=== PATIENT | female | born 1985 | race Caucasian/White ===

== ENCOUNTER 2020-11-19 13:26 | Outpatient (CLI) | payer OTHER, SELFPAY ==
[2020-11-19 14:17] LABS: Hematocrit 31.5 % (37.0-47.0); Hemoglobin 10.5 g/dL (12.0-15.0); Mean Corpuscular HGB Conc 33.3 g/dl (32-36); Mean Corpuscular Hemoglobin 31.5 pg (26-34); Mean Corpuscular Volume 94.6 fl (80-100); Mean Platelet Volume 9.5 fl (7.4-10.4); Platelet Count Result 247 k/mm3 (150-375); Red Blood Count 3.33 M/mm3 (4.2-5.4); Red Cell Distribution Width 13.2 % (11.5-14.5); White Blood Count 7.4 K/mm3 (4.5-10.0)
[2020-11-19 15:12] LABS: HIV 1/2 Ab P24 Ag Result Negative (Negative)
[2020-11-19 15:51] LABS: Hepatitis B Surface Antigen Negative (Negative); Rubella IgG Antibody 46.8 IU/ML
[2020-11-20 08:26] LABS: Rapid Plasma Reagin Non-Reactive (NonReactive)
[2020-11-21 16:23] LABS: CMV IgG Antibody <0.60 U/mL (<0.60)
== END 2020-11-19 13:27 | disposition home or self-care (01) ==
LOC: ANHLAB 13:29
PROVIDERS: Visit Provider Obstetrics & Gynecology
DX: N92.5 Other specified irregular menstruation (principal)
CPT/HCPCS: 36415; 84702; 85027; 86592; 86644; 86703; 86747; 86762; 86787; 86850; 86900; 86901; 87340; G0432

== ENCOUNTER 2021-02-26 14:28 | Outpatient (CLI) | payer OTHER, SELFPAY ==
[2021-02-26 14:52] LABS: Hematocrit 30.6 % (37.0-47.0); Hemoglobin 10.2 g/dL (12.0-15.0); Mean Corpuscular HGB Conc 33.3 g/dl (32-36); Mean Corpuscular Hemoglobin 32.3 pg (26-34); Mean Corpuscular Volume 96.8 fl (80-100); Mean Platelet Volume 9.9 fl (7.4-10.4); Platelet Count Result 209 k/mm3 (150-375); Red Blood Count 3.16 M/mm3 (4.2-5.4); Red Cell Distribution Width 12.7 % (11.5-14.5); White Blood Count 7.7 K/mm3 (4.5-10.0)
[2021-02-26 15:47] LABS: HIV 1/2 Ab P24 Ag Result Negative (Negative)
== END 2021-02-26 14:29 | disposition home or self-care (01) ==
LOC: ANHLAB 14:31
PROVIDERS: PCP Obstetrics & Gynecology; Visit Provider Obstetrics & Gynecology
DX: Z34.92 Encounter for supervision of normal pregnancy, unspecified, second trimester (principal); Z3A.00 Weeks of gestation of pregnancy not specified
CPT/HCPCS: 36415; 85027; 86703; G0432

== ENCOUNTER 2021-04-19 16:06 | Outpatient (RCR) | payer OTHER, SELFPAY ==
[2021-03-25 13:42] VITALS: BP 91/57; PULSE 81
--- NOTE | 2021-04-08 15:14 | PC.NURSE ---
Dr Alfonso notified of non reactive NST before US. US of 12/30 and now a reactive tracing. OK to dc and repeat NST on or Thursday.
[2021-04-08 15:15] VITALS: BP 109/61; PULSE 93
[2021-04-15 13:18] VITALS: BP 115/74; PULSE 93
--- NOTE | ~2021-04-19 | US_ITS ---
EXAMINATION: US OB follow up w BPP DATE: 03/25/2021 13:54 INDICATION: Advanced maternal age, biophysical profile and growth assessment during third trime ster TECHNIQUE: Real-time pelvic ultrasound was performed. The interpreting radiologist was not present fo r the study. COMPARISON: None. FINDINGS: There is a single living fetus in vertex presentation. The placenta is anterior. heart rate is 137 beats per minute (bpm). Biophysical profile performed by the technologist: breathing (30 sec sustained breathing in 30 minutes): 2 out of 2 movement (3 gross body movements in 30 minutes): 2 out of 2 tone (one episode of bxirnbc-tpdonzkpk-lmcczzs limb movement): 2 out of 2 Amniotic fluid pocket (2 cm): 2 out of 2 Total score: 8 out of 8 The following biometric data were obtained: Biparietal diameter (BPD): 8.5 cm; head circumference (HC): 20.1 cm; abdominal circumference (AC): 28 .2 cm; femur length (FL): 5.9 cm. The femoral length to biparietal diameter ratio and head circumference to abdominal circumference rat io greater than two standard deviations below the mean. The femoral length to head circumference rati o is greater than two standard deviations above the mean Estimated weight is 1663 g +/- 246 g, which correlates with the <3rd percentile when 05/11/2021 is used as estimated date of delivery. As single measurements, these parameters are each equal to the following estimated gestational ages w ith ranges of +/- 2 standard deviations: BPD: 34 weeks 3 days ( 31 weeks 2 days - 37 weeks 3 days). HC: 22 weeks 2 days ( 20 weeks 6 days - 23 weeks 6 days). AC: 32 weeks 2 days ( 29 weeks 2 days - 35 weeks 2 days). FL: 31 weeks 0 days ( 28 weeks 1 days - 34 weeks 0 days). estimated gestational age based solely on measurements from this exam is 30 weeks 0 days +/- 2 weeks 1 days. IMPRESSION: 1. Single living fetus in vertex presentation. 2. Biophysical profile 8 out of 8. 3. Estimated weight is 1663 g +/- 246 g, which correlates with the <3rd percentile when 021 is used as estimated date of delivery. 4. Discordant femoral length to biparietal diameter, head circumference to abdominal circumference, a nd femoral length to head circumference ratios. Reviewed, dictated and finalized at location B. IMPRESSION: 1. Single living fetus in vertex presentation. 2. Biophysical profile 8 out of 8. 3. Estimated weight is 1663 g +/- 246 g, which correlates with the <3rd p ercentile when 05/11/2021 is used as estimated date of delivery. 4. Discordant femoral length to biparietal diameter, head circumference to abdo anaid circumference, and femoral length to head circumference ratios.
--- NOTE | ~2021-04-19 | US_ITS ---
EXAMINATION: US OB follow up w BPP DATE: 04/19/2021 17:03 INDICATION: Evaluate growth percentile. IUGR. TECHNIQUE: Real-time ultrasound of the pelvis was performed. The interpreting radiologist was not pre sent for the study. COMPARISON: Comparison to multiple prior studies sequentially, with oldest reviewed study dated 05/2020. . FINDINGS: There is a single living fetus in vertex presentation. The placenta is anterior/fundal. cardia c activity and movement are noted. heart rate is 130 beats per minute (bpm). The amniotic fluid index is 11.9 cm cm, which is normal. The following biometric data were obtained: BPD: 89 cm corresponds to gestational age 36 weeks 0 day(s). Head circumference: 340 cm corresponds to gestational age 39 weeks 1 day(s). Abdominal circumference: 323 cm corresponds to gestational age 36 weeks 2 day(s). Femur length: 68 cm corresponds to gestational age 35 weeks 0 day(s). Head circumference to abdominal circumference ratio: 1.05 Estimated weight: 2869 g plus or minus 430 g. This corresponds to 36.7 percentile 1 05/11/2021 is used as the estimated date of delivery. Biophysical profile performed by the technologist: breathing (30 sec sustained breathing in 30 minutes): 2 out of 2 movement (3 gross body movements in 30 minutes: 0 out of 2 tone (one episode of akixvgo-ynnfbpffb-rujljlk limb movement): 2 out of 2 Amniotic fluid pocket (2 cm): 2 out of 2 Total score: 6/8 out of 8 IMPRESSION: 1. Single living fetus in vertex presentation with heart rate of 130 bpm. 2. Normal placenta. 3. Biophysical profile 6 out of 8. 4. Estimated weight is 36.7th percentile by Hadlock criteria when 05/11/2021 is used as the es timated date of delivery (ANAMIKA). Reviewed, dictated and finalized at location A. AL SITTER IMPRESSION: 1. Single living fetus in vertex presentation with heart rate of 130 bpm. 2. Normal placenta. 3. Biophysical profile 6 out of 8. 4. Estimated weight is 36.7th percentile by Hadlock criteria when 2020 is used as the estimated date of delivery (ANAMIKA).
--- NOTE | ~2021-04-19 | US_ITS ---
EXAMINATION: US OB BPP wo non-stress EXAM DATE: 04/15/2021 13:18 INDICATION: Nonreactive stress test. 3rd trimester. TECHNIQUE: Pelvic obstetrical transabdominal sonogram was performed by a technologist. There are mu ltiple grayscale and Doppler images available for interpretation. Comparison is made to prior examina tion from 04/08/2021. FINDINGS: There is a single fetus identified in vertex presentation with a heart rate of 129 beats pe r minute. The placenta is located in the anterior fundal position. There is no sonographic evidence of retroplacental hemorrhage identified. BIOPHYSICAL PROFILE (performed by the technologist) breathing (30 sec sustained breathing in 30 minutes): 2 out of 2 movement (3 gross body movements in 30 minutes): 2 out of 2 tone (one episode of jlesuly-fhabtzolt-vxjjdcd limb movement): 2 out of 2 Amniotic fluid pocket (2 cm): 2 out of 2 Total score: 8 out of 8 IMPRESSION: 1. Single fetus with heart rate of 129 bpm. 2. Normal biophysical profile score of 8 out of 8. Reviewed, dictated and finalized at location A. ENT SCHEDULING COORDINATOR
--- NOTE | ~2021-04-19 | US_ITS ---
EXAMINATION: US OB BPP wo non-stress, US umbilical doppler EXAM DATE: 04/08/2021 14:51 INDICATION: IUGR . 3rd trimester. TECHNIQUE: Pelvic obstetrical transabdominal sonogram was performed by a technologist. There are mu ltiple grayscale and Doppler images available for interpretation. Umbilical artery Dopplers obtained. Comparison is made to prior examination from 03/25/2021. FINDINGS: There is a single fetus identified in vertex presentation with a heart rate of 121 beats pe r minute. The placenta is located in the anterior position. There is no sonographic evidence of retr oplacental hemorrhage identified. The amniotic fluid index is 10.5 centimeters, which is normal. BIOPHYSICAL PROFILE (performed by the technologist) breathing (30 sec sustained breathing in 30 minutes): 2 out of 2 movement (3 gross body movements in 30 minutes): 2 out of 2 tone (one episode of fydaidf-ewdfvfvuf-bpvlcmf limb movement): 2 out of 2 Amniotic fluid pocket (2 cm): 2 out of 2 Total score: 8 out of 8. UMBILICAL ARTERY DOPPLER Multiple Systolic/diastolic ratios obtained ranging from 1.9-3.4, averaging 2.2 (The 5th -- 95th perc entile range is 2.0 -- 3.4). IMPRESSION: 1. Single fetus with heart rate of 121 bpm. 2. Normal biophysical profile score of 8 out of 8. 3. Normal TETE 10.5 cm. 4. Normal umbilical artery Doppler ratios. Reviewed, dictated and finalized at location B. N MARKETING SPECIALIST IMPRESSION: 1. Single fetus with heart rate of 121 bpm. 2. Normal biophysical profile score of 8 out of 8. 3. Normal TETE 10.5 cm. 4. Normal umbilical artery Doppler ratios.
[2021-04-19 17:56] VITALS: BP 120/74; PULSE 102
== END 2021-06-06 09:42 | disposition home or self-care (01) ==
LOC: ANHOBOP 16:06
PROVIDERS: Visit Provider Obstetrics & Gynecology
DX: O09.513 Supervision of elderly primigravida, third trimester (principal); Z3A.33 33 weeks gestation of pregnancy; O36.5930 Maternal care for other known or suspected poor fetal growth, third trimester, not applicable or unspecified; Z3A.35 35 weeks gestation of pregnancy; Z3A.36 36 weeks gestation of pregnancy
CPT/HCPCS: 59025; 76816; 76819; 76820

== ENCOUNTER 2021-05-03 07:22 | Inpatient (IN) | payer OTHER, SELFPAY ==
[2021-05-03] VITALS (84 sets, daily range): BP systolic 93–146; BP diastolic 58–86; PULSE 66–127; RESP 16; TEMP 36.4–37.6; O2SAT 92–100; BMI 20.6
--- NOTE | 2021-05-03 07:43 | PM.IMHP ---
H&P: HPI History of Present Illness Date/Time: 05/03/21 07:43 Ammy is a 36yo @ 38.6wks (ANAMIKA 05/11/21) who presents for IOL due to IUGR. She reports good movements and irregular contractions. No VB or LOF. She has undergone ANT intermittently; previously had a 11/01 but declined IOL at that time and did not follow up for repeat testing as she endorsed he has been active since then. She has had regular care. Her is complicated by: - IUGR - AMA; genetic testing declined - Anemia on iron - CMV non-immune - Inadequate weight gain this Chief Complaint: induction of labor Review of Systems Review of Systems: All systems reviewed & are unremarkable except as noted in HPI and below (HPI) [facility] Family History Family History (Updated 04/15/21 @ 12:15 by Celina Bryant RN) Father Diabetes mellitus Stented coronary artery Heart disease Social History Social History Substance use: never Spiritual care concerns: No Meds Home Medications and Allergies Home Medications Medication Instructions Recorded Confirmed Type ferrous sulfate 325 mg PO DAILY 04/15/21 04/19/21 History prenat.vits,katie,ved-hdmb-xwcuo 1 tablet PO DAILY 04/15/21 04/19/21 History [ #2] cholecalciferol (vitamin D3) 25 mcg PO DAILY 04/19/21 04/19/21 History [Vitamin D3] Allergies Allergy/AdvReac Type Severity Reaction Status Date / Time No Known Allergies Allergy Verified 04/15/21 12:12 Exam Const: General: cooperative, healthy appearing, comfortable and no acute distress Resp: Effort & Inspection: normal respiratory effort Cardio: Rate: regular rate GI: Inspection: normal to inspection and non-distended GI Palp: No abdominal tenderness and Yes Soft to palpation : Other: FHT's: 120's/mod rachele/ no accel/no decels - cat 1 TOCO: irregular ctxs Cervix: 2/50/-3 Membranes: intact Presentation: cephalic Skin: General skin exam: normal color Neuro: General: patient oriented x3 Extrem: General: normal to inspection Psych: Appearance: grossly normal Affect: normal affect Attitude: cooperative Assessment and Plan Assessment and plan (1) IUGR (intrauterine growth restriction) affecting care of mother: Qualifiers: Fetus number: single or unspecified fetus Trimester: third trimester Qualified Code(s): O36.5930 - Maternal care for other known or suspected poor growth, third trimester, not applicable or unspecified Code(s): O36.5990 - Maternal care for other known or suspected poor growth, unspecified trimester, not applicable or unspecified Status: Acute (2) Advanced maternal age (AMA) in : Status: Acute Additional Plan - Admit for IOL - Pitocin per protocol - Continuous monitoring; currently reassuring - Anesthesia consult PRN pain - GBS negative
[2021-05-03 08:05] LABS: Basophils Percent Auto 0.2 % (0.2-1.2); Eosinophils Absolute Auto 0.1 K/mm3 (0-0.3); Eosinophils Percent Auto 0.5 % (0-4.4); Hematocrit 33.9 % (37.0-47.0); Hemoglobin 11.5 g/dL (12.0-15.0); Immature Granulocyte Absolute 0.05 K/mm3 (0.00-0.031); Immature Granulocyte Percent A 0.5 % (0-0.5); Lymphocytes Absolute Auto 1.59 K/mm3 (0.9-3.2); Lymphocytes Percent Auto 17.2 % (18.3-44.2); Mean Corpuscular HGB Conc 33.9 g/dl (32-36); Mean Corpuscular Volume 94.4 fl (80-100); Mean Platelet Volume 10.7 fl (7.4-10.4); Monocytes Absolute Auto 0.6 K/mm3 (0.1-0.6); Monocytes Percent Auto 6.6 % (2.6-8.5); Neutrophils Absolute Auto 6.9 K/mm3 (1.3-6.7); Platelet Count Result 183 k/mm3 (150-375); Red Blood Count 3.59 M/mm3 (4.2-5.4); Red Cell Distribution Width 12.9 % (11.5-14.5); White Blood Count 9.2 K/mm3 (4.5-10.0)
[2021-05-03] MEDS: LACTATED RINGERS 1,000 ML 125 ML IV CONT (08:06)
[2021-05-03] MEDS: OXYTOCIN 30 UNITS/NS 500 ML 30 UNITS/500 ML BAG IV CONT (08:37)
--- NOTE | 2021-05-03 08:48 | LDADM ---
This patient, Ammy E Day, was admitted to Labor/Delivery/Recovery 104 on 05/03/21 at 07:22. Plans for labor, pain management and were discussed with patient. Patient/family oriented to hospital policies and general routines including ID bracelet, bed and alarms, visiting hours, pain management, procedures, bathroom and other care routines, personal items, smoking policy, room service/diet and guest tray routines, infant security routines, and visiting hours. Patient/Family are encouraged to report perceived risks to care and to ask questions if they do not understand what they are told or what they should do. See OBIX for further documentation.
--- NOTE | 2021-05-03 12:20 | PM.OBPNLAB ---
Pain Control Date/time seen: 05/03/21 12:20 Pain control: tolerating well Comments: wanting epidural now though Pelvic Exam Dilation (cm): 4 Effacement (%): 80 station: -2 Amniotic membrane status: Ruptured (AROM; clear, 1215) Contractions Monitor mode: External Contraction frequency: 2 Contraction pattern: Regular Contraction intensity: Moderate Status status: Category ll Comments: has periods of minimal variability when sleep; wakes up with good variability Assessment and Plan Pitocin rate (mU/min): 6 Assessment: induction ongoing Plan: continuous present management Comments: plan for epidural
[2021-05-03 12:37] LABS: Rapid Plasma Reagin Non-Reactive (NonReactive)
--- NOTE | 2021-05-03 13:34 | WPDANESEPPF ---
Anes - Initial Pre Proc Eval Date/Time: 05/03/21 13:34 Surgeon: Verónica Alfonso MD Pre Op Diagnosis: Induction of Labor Patient Data Age: 36 Gender: F Height: 1.68 m Weight: 58 kg Last Vital Signs Temp 37.6 C 05/03/21 12:40 Pulse 104 H 05/03/21 13:33 BP 125/75 05/03/21 13:33 Pulse Ox 93 05/03/21 13:29 Allergies Allergy/AdvReac Type Severity Reaction Status Date / Time No Known Allergies Allergy Verified 04/15/21 12:12 Home Medications Medication Instructions Recorded Confirmed Type ferrous sulfate 325 mg PO DAILY 04/15/21 04/19/21 History prenat.vits,katie,wxo-viby-vumhi 1 tablet PO DAILY 04/15/21 04/19/21 History [ #2] cholecalciferol (vitamin D3) 25 mcg PO DAILY 04/19/21 05/03/21 History [Vitamin D3] aspirin [Aspir-81] 81 mg PO DAILY 05/03/21 05/03/21 History Laboratory Tests 05/03/21 05/03/21 05/03/21 07:53 07:53 07:53 WBC 9.2 K/mm3 K/mm3 (4.5-10.0) RBC 3.59 M/mm3 L M/mm3 (4.2-5.4) Hgb 11.5 g/dL L g/dL (12.0-15.0) Hct 33.9 % L % (37.0-47.0) MCV 94.4 fl fl (80-100) MCH 32.0 pg pg (26-34) MCHC 33.9 g/dl g/dl (32-36) RDW 12.9 % % (11.5-14.5) Plt Count 183 k/mm3 k/mm3 (150-375) MPV 10.7 fl H fl (7.4-10.4) Immature Gran % (Auto) 0.5 % % (0-0.5) Neut % (Auto) 75.0 % H % (45.5-73.1) Lymph % (Auto) 17.2 % L % (18.3-44.2) [place] % (Auto) 6.6 % % (2.6-8.5) Eos % (Auto) 0.5 % % (0-4.4) Baso % (Auto) 0.2 % % (0.2-1.2) Lymph # (Auto) 1.59 K/mm3 K/mm3 (0.9-3.2) [place] # (Auto) 0.6 K/mm3 K/mm3 (0.1-0.6) Eos # (Auto) 0.1 K/mm3 K/mm3 (0-0.3) Baso # (Auto) 0.0 K/mm3 K/mm3 (0.0-0.1) Abs Immat Gran (auto) 0.05 K/mm3 H K/mm3 (0.00-0.031) Absolute Neuts (auto) 6.9 K/mm3 H K/mm3 (1.3-6.7) Absolute Nucleated RBC 0.0 K/mm3 K/mm3 (0.0-0.012) Nucleated RBC % 0.0 % % (0.0-0.2) RPR Non-reactive (NonReactive) Blood Type A Positive Antibody Screen Negative Patient hx anesthesia problems: none Family hx anesthesia problems: none Results Review: All pre-operative results and documents have been reviewed as part of the pre-operative evaluation. [facility] Family History Family History Father Diabetes mellitus Stented coronary artery Heart disease Social History Social History Smoking status: Never smoker Second hand tobacco smoke exposure: No Substance use: never Spiritual care concerns: No Anes - Eval Final PreProcedure Day of Procedure 05/03/21 13:34 Patient weight: normal Neurological: alert and oriented ASA classification: II Emergent: no Anesthetic plan: proceed Anesthesia type and monitoring: regional epidural and standard monitoring Results Review: All pre-operative results and documents have been reviewed as part of the pre-operative evaluation. Informed Consent: The patient's anesthetic plan and its attendant risks and benefits were discussed with the patient/family/POA. Questions were solicited and answers provided to the satisfaction of the patient/family/POA.
[2021-05-03] MEDS: LACTATED RINGERS 1,000 ML 999 ML IV CONT ×2 (14:00→14:15)
--- NOTE | 2021-05-03 16:00 | P.PCNOB_ITS ---
OB - Delivery Note Procedure Delivery date: 05/03/21 events: Labor Induction (IUGR, AMA) Intrapartal events: Deceleration Induction method: per pitocin protocol Delivery augmentation: pitocin Delivery monitor: external FHT and external uterine Route of delivery: Laceration Description: None Specimen: Yes (placenta) Quantitative Blood Loss (ml): 150 Anesthesia type: Epidural Disposition: floor Baby Date of : 05/03/[birth year] Time of : 15:41 Weeks of gestation at delivery: 38 (.6) Infant gender: Male Weight (pounds): 6 Weight (ounces): 7 presentation: vertex position: Left Occiput Anterior Placenta delivery description: Spontaneous and Expressed cord vessel description: 3 Vessels, Nuchal Cord, Reduced and Delayed Cord Clamping score one minute: 8 score five minutes: 9 Narrative: Ammy rapidly progressed to complete dilation with strong desire to push. She pushed for approximately 8 minutes and delivered the head over intact perineum. Nuchal cord was noted and reduced. She easily delivered the infant's shoulders and body without complication. The infant was immediately placed skin to skin and had spontaneous cry. Delayed cord clamping was performed. The umbilical cord was then clamped and cut. With Pitocin running and gentle down wilburn traction on the cord, the placenta delivered without complications. Bimanual massage was performed and good tone with minimal bleeding was noted. Patient was examined and no lacerations were noted. Sponge, lap, instrument, and needle counts were correct at the end of the procedure. Mom and baby were left bonding in the birthing suite in stable condition.
[2021-05-03] MEDS: OXYTOCIN 30 UNITS/NS 500 ML 30 UNITS/500 ML BAG 125 UNITS IV CONT (16:26)
[2021-05-03] MEDS: IBUPROFEN 600 MG TABLET PO (18:30)
[2021-05-03] MEDS: BENZOCAINE 20% AER SPR (*SP) 56 GM CAN 1 SPRAY TOPICAL (18:31)
[2021-05-03] MEDS: WITCH HAZEL 40 PADS 1 PAD TOPICAL (18:31)
--- NOTE | 2021-05-03 18:46 | OBPPTRN ---
Patient transferred to post room # 283 via wheelchair. Oriented to unit, room, information board, rooming in, admission packet and security measures. Patient verbalizes understanding.
[2021-05-03] MEDS: ACETAMINOPHEN 325 MG TABLET 650 MG PO (22:41)
[2021-05-04] MEDS: IBUPROFEN 600 MG TABLET PO ×2 (03:40→14:47)
[2021-05-04 03:43] VITALS: BP 101/69; PULSE 71; RESP 14; TEMP 36.7; O2SAT 98
[2021-05-04 04:49] LABS: Hematocrit 30.7 % (37.0-47.0); Hemoglobin 10.3 g/dL (12.0-15.0)
[2021-05-04 07:45] VITALS: BP 115/79; PULSE 72; RESP 18; TEMP 36.4; O2SAT 99
[2021-05-04] MEDS: DIBUCAINE 1% OINTMENT 30 GM TUBE 1 APPLIC TOPICAL (07:55)
[2021-05-04] MEDS: MULTIVIT/MIN/PREN/FOL AC/IRON TABLET 1 TAB PO (07:55)
[2021-05-04] MEDS: CHOLECALCIFEROL 1,000 UNITS TABLET 1000 UNITS PO (07:55)
--- NOTE | 2021-05-04 10:51 | PM.OBPNVD ---
OB - PN: Subj Subjective Date/time seen: 05/04/21 10:51 PPD#1 Ammy reports doing well today. She states her pain is controlled. Her bleeding is light. She has tolerated regular diet. She has voided, passed gas, and ambulated w/o issues. She is breast feeding. She would like to go home today. She denies CP, SOB, fever, chills, N/V, MCKNIGHT vision changes, dizziness or palpitations. OB - PN: Obj Data Labs CBC & Chem 7: 05/04/21 03:56 Labs: Laboratory Results - last 24 hr 05/03/21 05/04/21 07:53 03:56 Hgb 10.3 L Hct 30.7 L RPR Non-reactive OB - PN A/P Assessment and Plan (1) Normal spontaneous vaginal delivery: Code(s): O80 - Encounter for full-term uncomplicated delivery Status: Acute Plan day: 1 Plan: routine care and discharge home Comments: - f/u 4 wks - ER return precautions: bleeding, n/v/abd pain, HTN, fever Time Spent With Patient Time: Total time spent is greater than 50% in coordination of care (as documented) at patient's floor/unit and/or counseling patient: Review of Systems Review of Systems: All systems reviewed & are unremarkable except as noted in HPI and below (HPI) Exam Const: General: cooperative, healthy appearing, comfortable and no acute distress Resp: Effort & Inspection: normal respiratory effort Auscultation: clear to auscultation bilaterally Cardio: Rate: regular rate GI: Inspection: normal to inspection and non-distended GI Palp: No abdominal tenderness and Yes Soft to palpation Auscultation: normal bowel sounds : Other: fundus firm Skin: General skin exam: normal color Neuro: General: patient oriented x3 Extrem: General: normal to inspection Psych: Appearance: grossly normal Affect: normal affect Attitude: cooperative
[2021-05-04 12:15] VITALS: BP 117/77; PULSE 74; RESP 20; TEMP 36.4; O2SAT 99
--- NOTE | 2021-05-04 14:49 | WPDANLDPN2 ---
Anes-Prog Note L&D Date/Time: 05/04/21 14:49 Comfortable throughout: labor and delivery Neuraxial method: epidural Epidural/Spinal procedure site: clean & non-tender Neuro status: Neuro function grossly intact. Cardiovascular status: normal Respiratory status: normal Airway patency: baseline Mental status: baseline Post-Op hydration status: normal Vital Signs: Last Vital Signs Temp 36.4 C L 05/04/21 12:15 Pulse 74 05/04/21 12:15 Resp 20 05/04/21 12:15 BP 117/77 05/04/21 12:15 Pulse Ox 99 05/04/21 12:15 Pain score (VAS): 06/03 I/O: Intake & Output 05/03/21 05/04/21 05/04/21 23:59 07:59 15:59 Intake Total 1000 Output Total 1450 Balance -450 Post-procedural complaints: none Patient feedback: Patient satisfied with anesthetic care.
[2021-05-06 07:52] VITALS: BP 125/75; PULSE 85; RESP 16; TEMP 37.2; O2SAT 99
--- NOTE | 2021-05-08 13:48 | PM.OBDSVD ---
DS: Admitting Diagnosis Discharge Date 05/04/21 Admitting Diagnosis induction of labor DS: Discharge Diagnosis Discharge Diagnosis (1) Normal spontaneous vaginal delivery: Code(s): O80 - Encounter for full-term uncomplicated delivery Status: Acute (2) Advanced maternal age (AMA) in : Status: Acute OB - DS: Summary OB Procedures : NST and Ultrasound OB Procedures Intrapartum: Spontaneous Vag Delivery OB Procedures: : None Peripartum Data Delivery Method: Natural Vaginal Laceration Description: None complications: none 1: Gender: Male Disposition of : home Status at Discharge Functional status at discharge: independent ambulation Overall status at discharge: patient is back to baseline Time Spent with Patient Time attestation: Total time spent providing and/or coordinating discharge services: Time spent: Less than 30 minutes Exam Const: General: cooperative, healthy appearing, comfortable and no acute distress Resp: Effort & Inspection: normal respiratory effort Auscultation: clear to auscultation bilaterally Cardio: Rate: regular rate GI: Inspection: normal to inspection and non-distended GI Palp: No abdominal tenderness and Yes Soft to palpation Auscultation: normal bowel sounds : Other: fundus firm Skin: General skin exam: normal color Neuro: General: patient oriented x3 Extrem: General: normal to inspection Psych: Appearance: grossly normal Affect: normal affect Attitude: cooperative DS: Data Data Completed and Pending Pending studies at discharge: Pending at discharge 05/03/21 19:27 Surgical [PTH] Routine Discharge Plan Discharge Attending physician on discharge: Verónica Alfonso Consulting providers: Wilmer Shafer Discharging Clinician: Verónica Alfonso Anticipated Discharge Date/Time: 05/04/21 16:00 Patient Disposition: Home, Self-Care Activity: pelvic rest Diet: regular Discharge Instructions: Education: Mom and Baby Guide Given to: Mother Follow-Up: Call your delivering provider's office for an appointment to be seen in: 4 Weeks Mom and baby [facility] come [facility] for the follow-up appointment. Appointment Date/Time: May 06, 2021 at 8:00 am What to expect at your follow-up visit: Physical Assessment Call [phone] if you are unable to keep your appointment time. BREAST CARE: * Wear a snug supportive bra. * For engorgement discomfort: Breast Feeding: * Apply warm moist washcloths * Express milk as needed to relieve engorgement * Wear loose clothing * For sore nipples: * Identify correct latch-on * Apply warm moist washcloths before and after nursing * Air dry nipples after nursing * May apply Lansinoh cream to nipples EPISIOTOMY/PERINEAL CARE: * Until bleeding stops, use your ollie bottle after urinating * Change your pad frequently throughout the day * No tub baths until seen by your physician - You may shower ACTIVITY: * Rest as much as possible. * Do not exercise or lift anything heavier than your baby (such as laundry or other children.) * Avoid stairs or driving as much as possible. * Do not put anything into the vagina. No douching, tampons, or sexual activity until seen by physician. NOTIFY PHYSICIAN IF YOU HAVE ANY QUESTIONS OR IF ANY OF THE FOLLOWING SYMPTOMS OCCUR: * If your perineum becomes red, swollen, or more painful than what you have experienced in the hospital. * If your vaginal bleeding becomes foul smelling. * If your vaginal bleeding becomes more heavy than a period or if your bleeding changes from pink to bright red. However, you may pass an occasional walnut-sized clot once or twice for the first week . * If you experience a sharp, shooting pain in you calves. * If you discover a hard, chito
== END 2021-05-04 17:22 | disposition home or self-care (01) | DRG 560 ==
LOC: ANHLDR 07:24 → ANHOB2 19:12
PROVIDERS: Admitting Provider Obstetrics & Gynecology; Visit Provider Obstetrics & Gynecology
DX: O36.5930 Maternal care for other known or suspected poor fetal growth, third trimester, not applicable or unspecified (principal); Z3A.38 38 weeks gestation of pregnancy; Z37.0 Single live birth; O99.02 Anemia complicating childbirth; D64.9 Anemia, unspecified; O76 Abnormality in fetal heart rate and rhythm complicating labor and delivery; O69.81X0 Labor and delivery complicated by cord around neck, without compression, not applicable or unspecified
CPT/HCPCS: 36415; 85014; 85018; 85025; 86592; 86850; 86900; 86901; 88307; A9270; J2590; J2795; J7120

== ENCOUNTER 2023-11-27 06:53 | Inpatient (IN) | payer OTHER, SELFPAY ==
[2023-11-27] VITALS (87 sets, daily range): BP systolic 87–137; BP diastolic 49–84; PULSE 66–107; RESP 18; TEMP 36.3–36.8; O2SAT 94–100; BMI 21.9
[2023-11-27] MEDS: LACTATED RINGERS 1,000 ML 125 ML IV CONT (07:45)
[2023-11-27] MEDS: OXYTOCIN 30 UNITS/NS 500 ML 30 UNITS/500 ML BAG IV CONT (07:47)
--- NOTE | 2023-11-27 07:54 | WPDOBADMIT ---
Obstetrics - Admit Note Admission Note: record reviewed. No pertinent additions to the history and/or any subsequent changes in the physical findings that are not consistent with the expected course of the were found. Additions to the history and/or subsequent changes in the physical findings follow. IOL, SVE 4/80/-1, AROM moderate amount of clear, odorless fluid, anticipate vaginal delivery
--- NOTE | 2023-11-27 07:58 | LDADM ---
This patient, Ammy E Day, was admitted to Labor/Delivery/Recovery 107 on 11/27/23 at 06:53. Plans for labor, pain management and were discussed with patient. Patient/family oriented to hospital policies and general routines including ID bracelet, bed and alarms, visiting hours, pain management, procedures, bathroom and other care routines, personal items, smoking policy, room service/diet and guest tray routines, infant security routines, and visiting hours. Patient/Family are encouraged to report perceived risks to care and to ask questions if they do not understand what they are told or what they should do. See OBIX for further documentation.
[2023-11-27 08:04] LABS: Basophils Percent Auto 0.3 % (0.2-1.2); Eosinophils Absolute Auto 0.1 K/mm3 (0-0.3); Eosinophils Percent Auto 1.3 % (0-4.4); Hemoglobin 11.7 g/dL (12.0-15.0); Immature Granulocyte Absolute 0.03 K/mm3 (0.00-0.031); Immature Granulocyte Percent A 0.4 % (0-0.5); Lymphocytes Absolute Auto 1.44 K/mm3 (0.9-3.2); Lymphocytes Percent Auto 21.1 % (18.3-44.2); Mean Corpuscular HGB Conc 34.4 g/dl (32-36); Mean Corpuscular Hemoglobin 31.4 pg (26-34); Mean Corpuscular Volume 91.2 fl (80-100); Mean Platelet Volume 10.4 fl (7.4-10.4); Monocytes Absolute Auto 0.5 K/mm3 (0.1-0.6); Monocytes Percent Auto 7.5 % (2.6-8.5); Neutrophils Absolute Auto 4.7 K/mm3 (1.3-6.7); Neutrophils Percent Auto 69.4 % (45.5-73.1); Platelet Count Result 179 k/mm3 (150-375); Red Blood Count 3.73 M/mm3 (4.2-5.4); Red Cell Distribution Width 13.9 % (11.5-14.5); White Blood Count 6.8 K/mm3 (4.5-10.0)
[2023-11-27 08:25] LABS: HIV 1/2 Ab P24 Ag Result Negative (Negative)
--- NOTE | 2023-11-27 10:48 | WPDANESEPP ---
Anes - Eval Pre Procedure Procedure: labor epidural Date/Time: 11/27/23 10:48 Surgeon: Marlene Preop Diagnosis: Pain during labor Pre Op Diagnosis: Induction of Labor Patient Data Age: 38 Gender: F Height: 1.63 m Weight: 58.1 kg Last Vital Signs Temp 36.7 C 11/27/23 08:30 Pulse 71 11/27/23 10:31 BP 119/71 11/27/23 10:31 O2 Del Method Room Air 11/27/23 07:56 Allergies Allergy/AdvReac Type Severity Reaction Status Date / Time No Known Allergies Allergy Verified 04/15/21 12:12 Home Medications Medication Instructions Recorded Confirmed Type ferrous sulfate 325 mg (65 mg 325 mg PO DAILY 04/15/21 11/27/23 History iron) tablet,delayed release prenat.vits,katie,luh-fgip-delos 1 tablet PO DAILY 04/15/21 11/27/23 History Laboratory Tests 11/27/23 11/27/23 07:25 07:26 WBC 6.8 K/mm3 (4.5-10.0) RBC 3.73 L M/mm3 (4.2-5.4) Hgb 11.7 L g/dL (12.0-15.0) Hct 34.0 L % (37.0-47.0) MCV 91.2 fl (80-100) MCH 31.4 pg (26-34) MCHC 34.4 g/dl (32-36) RDW 13.9 % (11.5-14.5) Plt Count 179 k/mm3 (150-375) MPV 10.4 fl (7.4-10.4) Immature Gran % (Auto) 0.4 % (0-0.5) Neut % (Auto) 69.4 % (45.5-73.1) Lymph % (Auto) 21.1 % (18.3-44.2) [place] % (Auto) 7.5 % (2.6-8.5) Eos % (Auto) 1.3 % (0-4.4) Baso % (Auto) 0.3 % (0.2-1.2) Lymph # (Auto) 1.44 K/mm3 (0.9-3.2) [place] # (Auto) 0.5 K/mm3 (0.1-0.6) Eos # (Auto) 0.1 K/mm3 (0-0.3) Baso # (Auto) 0.0 K/mm3 (0.0-0.1) Abs Immat Gran (auto) 0.03 K/mm3 (0.00-0.031) Absolute Neuts (auto) 4.7 K/mm3 (1.3-6.7) Absolute Nucleated RBC 0.000 K/mm3 (0.0-0.012) Nucleated RBC % 0.0 % (0.0-0.2) RPR Pending HIV 1&2 Ab/P24 Ag 4thGn Negative (Negative) Blood Type A Positive Antibody Screen Negative Patient hx anesthesia problems: none Family hx anesthesia problems: none Results Review: All pre-operative results and documents have been reviewed as part of the pre-operative evaluation. [facility] Family History Family History Father Diabetes mellitus Stented coronary artery Heart disease Social History Social History Smoking status: Never smoker Second hand tobacco smoke exposure: No Substance use: never Do You Feel Safe in your Home?: Yes Lack of Transportation: No Lack of Food: Never True Current Housing: I Have Housing Concerned About Future Housing: No Difficulty Paying Gas/Electric Bills: No Difficulty Paying for Meds: No Currently Unemployed: No Education: Decline to Answer Difficulty w/ Childcare or Family Care: No Spiritual care concerns: No Exam Day of Procedure 11/27/23 10:48 Patient weight: normal Heart: regular rate and rhythm Lungs: clear to auscultation Airway: Mallampati scale Neurological: alert and oriented
[2023-11-27] MEDS: LACTATED RINGERS 1,000 ML 999 ML IV CONT (10:55)
[2023-11-27 12:59] LABS: Rapid Plasma Reagin Non-Reactive (NonReactive)
--- NOTE | 2023-11-27 14:29 | PM.OBPRVD ---
OB - Vaginal Delivery Note Procedure Delivery date: 11/27/23 Induction method: AROM and Per Pitocin Protocol Delivery monitor: External FHT and External Uterine Route of delivery: Episiotomy description: None Laceration Description: None Specimen: No Quantitative Blood Loss (ml): 50 Anesthesia type: Epidural Disposition: Floor Complications: No immediate complications [place] Baby Date of : 11/27/23 Time of : 14:19 Weeks of gestation at delivery: 39 Infant gender: Female presentation: vertex position: Right Occiput Anterior Placenta delivery description: Spontaneous Cord Vessel Description: 3 Vessels, Clamped/Cut and Delayed Cord Clamping score one minute: 8 score five minutes: 9
[2023-11-27] MEDS: OXYTOCIN 30 UNITS/NS 500 ML 30 UNITS/500 ML BAG 125 UNITS IV CONT (14:42)
[2023-11-27] MEDS: IBUPROFEN 600 MG TABLET PO ×2 (16:40→23:28)
--- NOTE | 2023-11-27 16:56 | OBPPTRN ---
Patient transferred to post room # 291 via wheelchair. Oriented to unit, room, information board, rooming in, admission packet and security measures. Patient verbalizes understanding.
[2023-11-27] MEDS: ACETAMINOPHEN 325 MG TABLET 650 MG PO (19:15)
[2023-11-28 04:10] VITALS: BP 97/65; PULSE 65; RESP 18; TEMP 36.4
[2023-11-28] MEDS: ACETAMINOPHEN 325 MG TABLET 650 MG PO (04:10)
[2023-11-28 05:06] LABS: Hematocrit 34.6 % (37.0-47.0); Hemoglobin 11.4 g/dL (12.0-15.0)
[2023-11-28] MEDS: MULTIVIT/MIN/PREN/FOL AC/IRON TABLET 1 TAB PO (06:56)
[2023-11-28] MEDS: IBUPROFEN 600 MG TABLET PO ×2 (06:57→14:52)
[2023-11-28 07:21] VITALS: BP 96/56; PULSE 71; RESP 16; TEMP 36.2
--- NOTE | 2023-11-28 09:33 | PM.OBPNVD ---
OB - PN: Subj Subjective Date/time seen: 11/28/23 09:33 Interval history: PPD#1 Doing well, pain well controlled Ready for discharge home OB - PN: Obj Data Labs 11/28/23 04:14 Labs: Laboratory Results - last 24 hr 11/27/23 11/28/23 07:26 04:14 Hgb 11.4 L Hct 34.6 L RPR Non-reactive OB - PN A/P Assessment and Plan (1) Normal spontaneous vaginal delivery: Code(s): O80 - Encounter for full-term uncomplicated delivery Status: Acute Plan day: 1 Plan: routine care and discharge home Time Spent With Patient Time: Total time spent is greater than 50% in coordination of care (as documented) at patient's floor/unit and/or counseling patient: Review of Systems Review of Systems: All systems reviewed & are unremarkable except as noted in HPI and below Exam Const: General: comfortable and no acute distress Orientation/consciousness: patient oriented x3 Resp: Effort & Inspection: normal respiratory effort
--- NOTE | 2023-11-28 09:42 | PM.OBDSVD ---
DS: Admitting Diagnosis Discharge Date 11/28/23 Admitting Diagnosis elective induction of labor DS: Discharge Diagnosis Discharge Diagnosis (1) Normal spontaneous vaginal delivery: Code(s): O80 - Encounter for full-term uncomplicated delivery Status: Acute OB - DS: Summary OB Procedures : None OB Procedures Intrapartum: Spontaneous Vag Delivery OB Procedures: : None Peripartum Data Laceration Description: None Episiotomy description: None Time Spent with Patient Time attestation: Total time spent providing and/or coordinating discharge services: DS: Data Data Completed and Pending Labs on day of discharge: Labs from last 24 hours 11/28/23 11/27/23 04:14 07:26 Hgb 11.4 L Hct 34.6 L RPR Non-reactive Discharge Plan Discharge Attending physician on discharge: Jono Anderson Discharging Clinician: Jono Anderson Patient Disposition: Home, Self-Care Activity: may shower and pelvic rest Diet: as tolerated Patient Instructions: Antibiotic Form Stand Alone Forms: General Discharge Information Follow-up/Referrals: Akanksha Mccartney CNM [Primary Care Provider] - 4 Weeks Discharge Medications: New docusate sodium 100 mg Capsule 100 mg PO BID PRN (Reason: Constipation) Qty: 60 0RF ibuprofen 600 mg Tablet 600 mg PO Q6H PRN (Reason: Cramping) Qty: 30 0RF Continued ferrous sulfate 325 mg (65 mg iron) Tablet,Delayed Release (Dr/Ec) 325 mg PO DAILY prenat.vits,katie,tac-ijfx-njxol Tablet 1 tablet PO DAILY Date of admission: 11/27/23 06:53 Primary Care Provider: Akanksha Mccartney Admitting Provider: Madhu Rosario Attending physician on admission: Madhu Rosario Condition: Stable
--- NOTE | 2023-11-28 10:47 | WPDANLDPN2 ---
Anes-Prog Note L&D Date/Time: 11/28/23 10:47 Comfortable throughout: labor and delivery Neuraxial method: epidural Epidural/Spinal procedure site: tender Neuro status: Neuro function grossly intact. Cardiovascular status: normal Respiratory status: normal Airway patency: baseline Mental status: baseline Post-Op hydration status: normal Vital Signs: Last Vital Signs Temp 36.2 C L 11/28/23 07:21 Pulse 71 11/28/23 07:21 Resp 16 11/28/23 07:21 BP 96/56 L 11/28/23 07:21 Pulse Ox 97 11/27/23 17:05 O2 Del Method Room Air 11/27/23 20:40 Pain score (VAS): 4/10 I/O: Intake & Output 11/27/23 11/28/23 11/28/23 23:59 07:59 15:59 Output Total 200 Balance -200 Post-procedural complaints: none Patient feedback: Patient satisfied with anesthetic care.
--- NOTE | 2023-11-28 14:28 | PC.NURSE ---
1025. Mother verbalizes she is able to independently latch infant with appropriate positioning and alignment. She denies any nipple discomfort and is responsively . is currently meeting outcomes for weight, output, jaundice, blood sugar and feeding frequencies of 8-12 times in 24 hours. Mother declines any additional assistance or education at this time. Mother is encouraged to call for assistance if her doesn?t latch, pain with latching, questions or concerns. Mother voiced understanding of information shared along with the mom/baby guide for an additional resource. Reported to the Primary RN.
[2023-11-30 10:28] VITALS: BP 108/75; PULSE 82; RESP 18; TEMP 36.7; O2SAT 98
== END 2023-11-28 15:35 | disposition home or self-care (01) | DRG 560 ==
LOC: ANHOB2 11-28 09:44 → ANHLDR 12-01 08:40 → ANHOB2 12-01 08:40
PROVIDERS: Admitting Provider Obstetrics & Gynecology; PCP Advanced Practice Midwife; Visit Provider Obstetrics & Gynecology
DX: O80 Encounter for full-term uncomplicated delivery (principal); Z3A.39 39 weeks gestation of pregnancy; Z37.0 Single live birth
CPT/HCPCS: 36415; 85014; 85018; 85025; 86592; 86703; 86850; 86900; 86901; A9270; G0432; J2590; J2795; J7120